=== PATIENT | male | born 1960 | race Caucasian/White ===

== ENCOUNTER 2024-03-26 11:44 | Observation (INO) | payer OTHER ==
[2024-03-26] MEDS: LACTATED RINGERS SOLUTION 1000 ML INFUS.BAG IV ONE (13:26)
[2024-03-26 13:29] LABS: BASO % 0.8 % (0-2.0); EOS % 0.3 % (0-4.5); HEMATOCRIT 39.7 % (35.4-49); HEMOGLOBIN 13.7 GM/dL (11.7-16.9); LYMPH % 12.6 % (8-40); MCH 32.2 pg (25.7-33.7); MCHC 34.5 g/dl (32.0-35.9); MEAN CELL VOLUME 93.1 fl (80-96); MEAN PLT VOLUME 8.1 fl (7.5-11.1); NEUT % 78.3 % (42.8-82.8); PLATELET COUNT 371 10^3/uL (134-434); RBC 4.26 M/mm3 (4.00-5.60)
[2024-03-26 13:35] LABS: INR 1.05 (0.83-1.09); PROTHROMBIN TIME (PATIENT) 11.8 SEC (9.7-13.0)
[2024-03-26 13:38] LABS: ACTIVATED PTT 34.2 SECONDS (25.2-36.5)
[2024-03-26 13:51] LABS: POTASSIUM 4.2 mmol/L (3.5-5.1)
[2024-03-26 13:53] LABS: CALCIUM 9.3 mg/dL (8.5-10.1)
[2024-03-26 13:54] LABS: ALBUMIN 3.7 g/dl (3.4-5.0); BLOOD UREA NITROGEN 17.1 mg/dL (7-18); MAGNESIUM 2.1 mg/dL (1.8-2.4)
[2024-03-26 13:57] LABS: CREATININE 1.1 mg/dL (0.55-1.3)
[2024-03-26 13:59] LABS: BILIRUBIN,TOTAL 0.6 mg/dL (0.2-1); TOT PROT 6.7 g/dl (6.4-8.2)
[2024-03-26] MEDS ORDERED: ACETAMINOPHEN INJECTION 100 ML IVPB ONE (16:07)
[2024-03-26] MEDS: ACETAMINOPHEN 1000 MG/100 ML BAG IVPB ONE (16:12)
[2024-03-26] MEDS ORDERED: ACETAMINOPHEN 325 MG TABLET (FP) PO PRN ×2 (18:45→18:47)
[2024-03-26] MEDS ORDERED: oxyCODONE HCL 5 MG TABLET PO PRN (18:47)
[2024-03-26] MEDS ORDERED: NALOXONE HCL 0.4 MG/ML VIAL IVPUSH PRN (18:47)
[2024-03-26 20:58] VITALS: RESP 18; BMI 17.9
[2024-03-26 23:20] LABS: PH,URINE 6.5 (5.0-8.0); URINE APPEARANCE CLEAR; URINE BILIRUBIN NEGATIVE (NEGATIVE); URINE COLOR YELLOW; URINE GLUCOSE (UA) NEGATIVE (NEGATIVE); URINE KETONE NEGATIVE (NEGATIVE); URINE LEUK ESTERASE NEGATIVE (NEGATIVE); URINE NITRITE NEGATIVE (NEGATIVE); URINE PROTEIN NEGATIVE (NEGATIVE); URINE UROBILINOGEN 0.2 mg/dL (0.2-1.0)
[2024-03-27 07:43] LABS: BASO % 0.8 % (0-2.0); HEMOGLOBIN 12.1 GM/dL (11.7-16.9); LYMPH % 29.4 % (8-40); MCH 32.3 pg (25.7-33.7); MCHC 34.7 g/dl (32.0-35.9); MEAN CELL VOLUME 93.1 fl (80-96); MEAN PLT VOLUME 8.4 fl (7.5-11.1); MONO % 10.9 % (3.8-10.2); NEUT % 56.9 % (42.8-82.8); PLATELET COUNT 338 10^3/uL (134-434); RBC 3.76 M/mm3 (4.00-5.60); RDW 13.2 % (11.9-15.9); WHITE BLOOD COUNT 8.1 K/mm3 (4.0-10.0)
[2024-03-27 07:53] LABS: POTASSIUM 4.3 mmol/L (3.5-5.1)
[2024-03-27 07:56] LABS: CALCIUM 8.5 mg/dL (8.5-10.1)
[2024-03-27 07:57] LABS: BLOOD UREA NITROGEN 15.4 mg/dL (7-18)
[2024-03-27 07:58] LABS: PHOSPHOROUS 3.8 mg/dL (2.5-4.9)
[2024-03-27 14:33] VITALS: BP 106/55; PULSE 78; TEMP 98.2
== END 2024-03-27 18:39 | disposition home or self-care (01) ==
LOC: JER 11:44 → JERBED 16:42 → J7W 19:50
PROVIDERS: ADMIT Internal Medicine; ATTEND Nurse Practitioner
PROC: 3E0337Z Introduction of Electrolytic and Water Balance Substance into Peripheral Vein, Percutaneous Approach (ICD-10-PCS; principal; 2024-03-26)
PROC: 3E033NZ Introduction of Analgesics, Hypnotics, Sedatives into Peripheral Vein, Percutaneous Approach (ICD-10-PCS; 2024-03-26)
DX: M25.552 Pain in left hip (principal); W18.39XA Other fall on same level, initial encounter; Y93.89 Activity, other specified; Y92.008 Other place in unspecified non-institutional (private) residence as the place of occurrence of the external cause; E46 Unspecified protein-calorie malnutrition; R26.81 Unsteadiness on feet; F17.210 Nicotine dependence, cigarettes, uncomplicated
CPT/HCPCS: 0241U-QW; 36415; 70450-TC; 71046-TC-FY; 72170-TC-FY; 72192-TC; 80048; 80053; 81003; 82550; 83735; 84100; 85025; 85610; 85730; 93005; 93010; 96374; 97116-GP; 99285-25; G0378; J0131